=== PATIENT | male | born 1950 | race African-American/Black ===

== ENCOUNTER 2017-07-09 10:11 | Outpatient (CLI) | payer MEDICARE ==
--- NOTE | 2017-07-09 12:20 | MRI ---
MRI LEFT SHOULDER WITHOUT CONTRAST: HISTORY: M25.512. Left shoulder pain. COMPARISON: Radiograph from 2015. FINDINGS: BICEPS TENDON: Prior tenodesis No normal intraarticular biceps tendon. GLENOID LABRUM: There is tear throughout the superior labrum. There is also posterior inferior labral tear. ROTATOR CUFF: Prior rotator cuff repair. There is a full-thickness tear of the posterior supraspinatus and anterio r infraspinatus tendons and an AP width of 15 mm with a 15 mm gap 9 mm from the footplate. There is extensive undersurface fraying and interstitial tearing of the infraspinatus tendon. MUSCLES: There is moderate edema within the infraspinatus muscle. There is mild intermuscular fatty atrophy o f the supraspinatus and infraspinatus tendons. BONES: Mild degenerative disease of the acromioclavicular joint. IMPRESSION: 1. Full-thickness tear of the posterior fibers supraspinatus tendon and anterior fibers of the infra spinatus tendon measuring 15 mm in AP dimension with a 5 mm gap. This occurs 9 mm from the footplate . Extensive undersurface fraying as well as interstitial tearing through the remainder of the infras pinatus tendon. 2. Prior biceps tenodesis. 3. Superior labral tear as well as chronic posterior inferior labral tear. POS: [facility]
== END 2017-07-09 10:12 | disposition home or self-care (01) ==
LOC: SCSMRI 10:11
PROVIDERS: ATTEND Orthopaedic Surgery
DX: M25.512 Pain in left shoulder (principal); S46.812A Strain of other muscles, fascia and tendons at shoulder and upper arm level, left arm, initial encounter; S43.492A Other sprain of left shoulder joint, initial encounter; Z98.890 Other specified postprocedural states

== ENCOUNTER → 2017-07-22 | Outpatient (CLI) | payer MEDICARE ==
[2017-07-22 13:56] LABS: Hemoglobin 13.5 g/dL (14.0-18.0); Mean Corpuscular Hemoglobin 29.2 pg (27.0-31.0); Mean Corpuscular Volume 88.4 fl (80.0-94.0); Mean Platelet Volume 7.1 fL (7.4-10.4); Platelet Count 329 thou/uL (130-400); RBC Distribution Width 13.2 % (11.5-14.5); Red Blood Cell (RBC) Count 4.64 mill/uL (4.70-6.10); White Blood Cell (WBC) Count 6.9 thou/uL (4.8-10.8)
[2017-07-22 14:11] LABS: Anion Gap 19 mmol/L (10-20); BUN (Urea Nitrogen) 12 mg/dL (8.4-25.7); Calc. Creatinine Clearance 0 mL/min (70-130); Calcium 9.8 mg/dL (7.8-10.44); Carbon Dioxide 20 mmol/L (23-31); Chloride 105 mmol/L (98-107); Estimated GFR-MDRD Greater than 90; Glucose 81 mg/dL (80-115); Potassium 3.9 mmol/L (3.5-5.1); Sodium 140 mmol/L (136-145)
== END ==
LOC: LABBT 13:00
PROVIDERS: ATTEND Orthopaedic Surgery
DX: Z01.818 Encounter for other preprocedural examination (principal); M75.102 Unspecified rotator cuff tear or rupture of left shoulder, not specified as traumatic
CPT/HCPCS: 80048; 85027; 93005; 93010

== ENCOUNTER 2017-07-23 09:48 | Day surgery (SDC) | payer MEDICARE ==
[2017-07-22 13:38] VITALS: BMI 27.3
[~2017-07-23 09:48] MED LIST: Glycopyrrolate 0.2 MG/ML 5 ML SYRINGE ONE; Lidocaine 1% PF 5 ML VIAL ONE; PROPOFOL 200 MG/20 ML VIAL ONE; Ropivacaine 0.2% HCl/PF (40 MG/20 ML VIAL) ONE; Ropivacaine 0.5% HCl/PF (150 MG/30 ML VIAL) ONE
[2017-07-23] MEDS ORDERED: Midazolam HCl 2 mg/2 ml Vial ONE (11:21)
[2017-07-23] MEDS ORDERED: Fentanyl 100 MCG/2 ML VIAL ONE (11:22)
[2017-07-23] MEDS ORDERED: Ondansetron HCl/PF 4 MG/2 ML Vial IVP PRN (11:31)
[2017-07-23] MEDS ORDERED: traMADol HCl 50 MG TAB PO PRN ×2 (11:31)
[2017-07-23] MEDS ORDERED: HYDROcodone/Acetaminophen 10/325 mg Tablet PO PRN ×2 (11:31)
[2017-07-23] MEDS ORDERED: Ketorolac Tromethamine 30 MG/ML VIAL IVP PRN (11:31)
[2017-07-23] MEDS ORDERED: Zolpidem Tartrate 5 MG TAB PO PRN (11:31)
[2017-07-23] MEDS ORDERED: Ropivacaine 0.2% 550 ML 550 ML NERVE BLCK SCH (11:31)
[2017-07-23] MEDS ORDERED: Promethazine HCl 25 MG/ML VIAL IM PRN (11:31)
[2017-07-23] MEDS ORDERED: Fentanyl 100 MCG/2 ML VIAL IV PRN (11:32)
[2017-07-23] MEDS ORDERED: Fentanyl 250 MCG/5 ML VIAL ONE (12:10)
[2017-07-23] MEDS ORDERED: Bupivacaine/Epinephrine 0.25% 30 ML VIAL ONE (12:12)
[2017-07-23] MEDS ORDERED: HYDROcodone/Acetaminophen 7.5/325 mg Tablet ONE (15:22)
--- NOTE | 2017-07-23 20:52 | OP ---
DATE OF SURGERY: 07/23/2017 PREOPERATIVE DIAGNOSIS: Left rotator cuff retear. POSTOPERATIVE DIAGNOSIS: Left rotator cuff retear. PROCEDURE PERFORMED: Left rotator cuff repair. STAFF: Merlin Haskins M.D. TOOL MACHINE SET UP OPERATOR: None. ANESTHESIA: Dr. De Los Santos. The patient received a general endotracheal intubation with an interscalene b lock. ESTIMATED BLOOD LOSS: 30 mL. TOURNIQUET TIME: None. IMPLANTS: An Arthrex 5.5 x 16.5 metal corkscrew x2 and Arthrex 5.5 BioComposite SwiveLock x2. ANTIBIOTICS: Ancef 2 grams. COMPLICATIONS: None. HISTORY OF PRESENT ILLNESS: Mr. Landeros is a pleasant 66-year-old male who had a previous rotator c uff repair performed in 2015. The patient had no pain, arm was jerked when he was getting relative o ut of a car in March, continued to have pain with activity, and pain interrupted sleep. The patien t had an MRI which showed a retear of his rotator cuff. I discussed the risks and benefits of the re pair of the retear of his left rotator cuff to include pain, scar, bleeding, infection, damage to vit al structures, decreased range of motion or strength, failure of procedure, failure to repair, need f or further surgeries, loss of life or limb. The patient understood the risks and benefits and electe d to proceed. PROCEDURE NOTE: Time-out was performed designating the patient's left upper extremity as the operati ve site based on sight, consents, and markings. After completion of timeout, the patient's left uppe r extremity was prepped and draped in sterile fashion. The patient had a posterior lateral portal an d placed intraarticularly, saw the biceps groove and tenodesis, saw the cuff tear intraarticularly, t hen full thickness cartilage defects moved subacromially, placed an anterior working portal as well a s mild lateral portal in the previous incision sites. I debrided the cartilage. I did not feel the cuff could go far, so I debrided the cuff cartilage down to bleeding bone to help with placement of m y footprint. I did that for about 7-8 mm. I also debrided the bone to help with the placement of th e cuff down, I used a spatula to help to clean it off underneath and help with retraction towards the shoulder. I also did a tenodesis. I also freed with this fashion on the undersurface to help to mo bilize the cuff, placed two metal 5.5 corkscrew anchors off of the articular margin that I created. I then passed 4 stitches for 4 suture ends and 4 suture ends for 4 horizontal mattress suture anchors . I then placed a double row as well as his equivalent with my SwiveLocks laterally. I took my sondra camara pictures, washed and closed. The patient will follow up with me in 2 week to 10-12 days, to be no wrist, and hand motion and stay in a sling. He was sent home on a regular sling.
== END 2017-07-23 16:06 | disposition home or self-care (01) ==
LOC: SDC 09:48
PROVIDERS: ATTEND Orthopaedic Surgery
PROC: 0LQ24ZZ Repair Left Shoulder Tendon, Percutaneous Endoscopic Approach (ICD-10-PCS; principal; 2017-07-23)
PROC: 0LS24ZZ Reposition Left Shoulder Tendon, Percutaneous Endoscopic Approach (ICD-10-PCS; 2017-07-23)
PROC: 0RNK4ZZ Release Left Shoulder Joint, Percutaneous Endoscopic Approach (ICD-10-PCS; 2017-07-23)
DX: M75.102 Unspecified rotator cuff tear or rupture of left shoulder, not specified as traumatic (principal)
CPT/HCPCS: 29826; 29827; 29828; A4306; C1713; J2001; J2250; J2704; J2795; J3010

== ENCOUNTER 2018-02-02 10:41 | Outpatient (CLI) | payer MEDICARE ==
--- NOTE | 2018-02-02 13:16 | ULT ---
HEPATIC ULTRASOUND INCLUDING COLOR AND SPECTRAL DOPPLER IMAGING: History: 67-year-old male with Hep C. terminal computer operator alcohol consumption. FINDINGS: Scan limited by body habitus. Abnormal coarse liver echogenicity with liver enlargement up to 21 cm. No evidence of gallstones, laura ateral wall thickening, or pericholecystic fluid. Common bile duct 0.4 cm. No splenomegaly. No abnorm al fluid collection or ascites. Vascular duplex demonstrates antegrade hepatic venous and portal venous flow. IMPRESSION: Hepatomegaly with coarse increased echogenicity, evidence for fatty change or diffuse hepatic parench ymal process. No evidence of gallstones or ductal dilatation. Antegrade hepatic and portal venous adriana w. POS: [facility]
== END 2018-02-02 10:42 | disposition home or self-care (01) ==
LOC: SCSULT 10:41
PROVIDERS: ATTEND Physician Assistant Medical
DX: K62.5 Hemorrhage of anus and rectum (principal); D12.6 Benign neoplasm of colon, unspecified; K76.0 Fatty (change of) liver, not elsewhere classified
CPT/HCPCS: 76705